=== PATIENT | male | born 1980 | race Two or more races ===

== ENCOUNTER 2022-04-23 22:29 | Emergency (ER) | payer MEDICARE, OTHER ==
[~2022-04-23] VITALS: Ht 175.3 cm; Wt 74.8 kg
--- NOTE | 2022-04-23 23:04 | NUR ---
BIBS FOR S/I WITH NO PLAN, SEEKING VOLUNTARY ADMISSION TO PSYCH FACILITY. PATIENT ALERT AND ORIENTED X3. AMBULATORY WITH NON LABORED BREATHING IN BED 18 AWAITING MD ARMENDARIZ. ALL BELONGINGS TAKEN AND PLACED IN A LOCKER. PATIENT IN A GOWN.
--- NOTE | 2022-04-23 23:09 | NUR ---
URINE COLLECTED AND SENT TO LAB
--- NOTE | 2022-04-23 23:09 | NUR ---
COVID SWAB DONE AND SENT TO LAB
--- NOTE | 2022-04-23 23:11 | NUR ---
SECURITY AT BEDSIDE FOR WANDING.
--- NOTE | 2022-04-23 23:14 | NUR ---
[employer] DEALER AT PT'S BEDSIDE
[2022-04-23 23:30] LABS: BASOPHILS % (AUTO) 0.7 % (0.0-2.0); EOSINOPHILS % (AUTO) 1.2 % (0.0-6.0); HEMATOCRIT 45 % (39-51); HEMOGLOBIN 15.2 g/dL (13.5-17.5); LYMPHOCYTES # (AUTO) 2.2 K/uL (0.8-4.8); LYMPHOCYTES % (AUTO) 31.8 % (20.0-44.0); MEAN CORPUSCULAR HGB CONC 34 g/dl (31.0-36.0); MEAN CORPUSCULAR VOLUME 90 fL (80-96); MONOCYTES # (AUTO) 0.5 K/uL (0.1-1.30); MONOCYTES % (AUTO) 7.5 % (2.0-12.0); NEUTROPHILS # (AUTO) 4.1 K/uL (1.8-8.9); NEUTROPHILS % (AUTO) 58.8 % (43.0-81.0); PLATELET COUNT (AUTO) 290 K/uL (150-450); RED BLOOD CELL COUNT(AUTO) 4.99 MIL/uL (4.5-6.0)
[2022-04-23 23:33] LABS: BILIRUBIN,URINE NEGATIVE (NEGATIVE); COLOR,URINE YELLOW (YELLOW); LEUKOCYTE ESTERASE ,URINE NEGATIVE (NEGATIVE); NITRITE, URINE NEGATIVE (NEGATIVE); PROTEIN,URINE NEGATIVE (NEGATIVE); UGLUCOSE >=1000 mg/dL (NEGATIVE); UROBILINOGEN,URINE 0.2 EU/dL (0.2)
[2022-04-23 23:45] LABS: ALANINE AMINOTRANSFERASE 27 U/L (12-78); ALBUMIN 4.2 g/dL (3.4-5.0); ALCOHOL, BLOOD < 3 mg/dL (0-0); ALKALINE PHOSPHATASE 127 U/L (46-116); ASPARTATE AMINOTRANSFERASE 14 U/L (15-37); BILIRUBIN,DIRECT 0.1 mg/dL (0.0-0.2); BILIRUBIN,TOTAL 0.4 mg/dL (0.2-1.0); CALCIUM, SERUM 8.3 mg/dL (8.5-10.1); CARBON DIOXIDE 32 mmol/L (21-32); CHLORIDE 95 mmol/L (98-107); POTASSIUM 3.8 mmol/L (3.5-5.1); SODIUM SERUM 130 mmol/L (136-145); TOTAL PROTEIN, SERUM 8.3 g/dL (6.4-8.2); UREA NITROGEN, BLOOD 12 mg/dL (7-18)
[2022-04-23 23:46] LABS: ACETAMINOPHEN 0 ug/ml (10-30)
[2022-04-23 23:47] LABS: GLUCOSE 411 mg/dL (74-106)
--- NOTE | 2022-04-23 23:47 | NUR ---
CRITICAL: 411 GLUCOSE MADE AWARE
[2022-04-23] MEDS ORDERED: INSULIN REGULAR, HUMAN 100 UNIT/ML 10 ML VIAL ONE (23:58)
[2022-04-23] MEDS ORDERED: POTASSIUM CHLORIDE 20 MEQ TAB.PRT.SR PO ONE (23:58)
[2022-04-24] MEDS ORDERED: POTASSIUM CHLORIDE 20 MEQ TAB.PRT.SR PO ONE
--- NOTE | 2022-04-24 01:31 | NUR ---
FINGER STICK BLOOD SUGAR CHECK: 252. AWARE.
--- NOTE | 2022-04-24 05:47 | NUR ---
PT SLEEPING. RESP EVEN AND NON LABORED. SAFETY MEASURES IN PLACE. VSS
[2022-04-24 07:20] LABS: BACTERIA,URINE None seen /HPF (None Seen); RBC,URINE 0-2 /HPF (0-2); SQUAMOUS EPITHELIAL CELL,UR 0-2 /HPF (None Seen); WBC,URINE NONE SEEN /HPF (0-3)
[2022-04-24] MEDS ORDERED: INSULIN REGULAR, HUMAN 100 UNIT/ML 10 ML VIAL ONE (09:58)
[2022-04-24] MEDS ORDERED: INSULIN REGULAR, HUMAN 100 UNIT/ML 10 ML VIAL SQ ONE ×3 (10:00→13:30)
--- NOTE | 2022-04-24 10:02 | NUR ---
DR CUEVAS MADE AWARE OF RECENT ACCUCHECK.MEDICATED ORDERED.SEE EMAR.
--- NOTE | 2022-04-24 10:12 | NUR ---
FOOS TRAY PROVIDED. TOLERATED WELL.
--- NOTE | 2022-04-24 17:38 | NUR ---
PT BEING CONSIDERED FOR [facility] WILL UPDATE WHEN AVAILABLE.
--- NOTE | 2022-04-24 21:55 | NUR ---
FAXED CLINICALS TO [facility]
--- NOTE | 2022-04-24 22:15 | NUR ---
[facility] FOR [facility]PORT [phone]
--- NOTE | 2022-04-24 22:21 | NUR ---
[facility] ETA: 10-15 MIN
--- NOTE | 2022-04-24 22:26 | NUR ---
REPORT GIVEN TO IJ
[2022-04-24 22:44] VITALS: BP 138/70
--- NOTE | 2022-04-24 22:44 | NUR ---
[facility] AT BEDSIDE FOR PATIENT TRANSPORT TO [facility].
--- NOTE | 2022-04-24 22:48 | NUR ---
[facility] AT BED SIDE TO MANAGER ADVERTISING THE PT
== END 2022-04-24 22:50 ==
LOC: ER 23:19
DX: R45.851 Suicidal ideations (principal); F20.9 Schizophrenia, unspecified; F31.9 Bipolar disorder, unspecified; Z59.00 Homelessness unspecified; Z20.822 Contact with and (suspected) exposure to COVID-19; R73.9 Hyperglycemia, unspecified
CPT/HCPCS: 99285; 85025; 80048; 80076; 81001; 36415; 87426; 80143; 80320; 80307; 96372 ×2; 82962 ×6; J1815 ×2; C9803; G0480